=== PATIENT | male | born 1975 | race Caucasian/White ===

== ENCOUNTER → 2018-04-29 09:55 | Outpatient (CLI) | payer BC, SELFPAY ==
--- NOTE | 2018-04-29 10:00 | SATEXT_ITS ---
Assessment: Mr. Guerrero presents for nutritional counseling for hyperlipidemia. His reports there is a strong family history of heart disease. He is on medication for his cholesterol. His dietary recall shows that he has coffee with cream and sugar for breakfast, a sandwich, a piece of fruit, and snack cakes for lunch, a typical dinner, and then a snack like ice cream or snack cakes before bed. He drinks water all day long. Mr. Guerrero reports that he is very physically active. He is 70 and 236 lbs. His BMI is 35 kg/m2 c/w class 2 obesity. Nutritional Diagnosis: Undesirable food choices with regard to hyperlipidemia as evidenced by dietary recall. Intervention: Acknowledged the positive points of his eating plan and his lifestyle. He drinks water. He has been maintaining his weight so he does not overeat and he is physically active. We discussed the DASH eating plan as the gold standard for health and especially for heart health. We talked about Dahlgren 3's as a therapeutic food. Discussed eating in a way to promote a mild 5- 10% weight loss. Encouraged breakfast eating and gave examples. We talked about reducing the amount of added sugars he has in his diet with the snack cakes and to his coffee. We talked about action planning to make changes versus changing it all at once. Mr. Guerrero and his both demonstrated a good understanding of the information. Anticipate a high motivation to make changes and therefore good compliance. Provided written materials. Monitoring and Evaluation: Mr. Guerrero will self monitor his progress on his action plans and evaluate his nutrition care plan and adjust accordingly. Provided my contact information and encouraged Mr. Guerrero and/or his to contact me with any questions or concerns regarding his nutrition therapy. Thank you for the referral.
== END ==
PROVIDERS: PCP Nurse Practitioner; Visit Provider Dietitian, Registered
DX: E78.2 Mixed hyperlipidemia (principal); Z71.3 Dietary counseling and surveillance
CPT/HCPCS: 97802

== ENCOUNTER 2018-10-24 00:58 | Outpatient (CLI) | payer BC, SELFPAY ==
--- NOTE | 2018-10-24 08:38 | DI.RAD_ITS ---
SYMPTOM/DIAGNOSIS: RT ELBOW PAIN, M25.521 RIGHT ELBOW: Three views. No acute or healing fracture or dislocation is seen. The bones are normally mineralized. The articular surfaces are well maintained. Calcification is seen within the joint space laterally. The soft tissues are otherwise unremarkable. No significant joint effusion is seen. 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
== END 2018-10-24 01:18 ==
PROVIDERS: PCP Nurse Practitioner; Visit Provider Nurse Practitioner
DX: M25.521 Pain in right elbow (principal)
CPT/HCPCS: 73080

== ENCOUNTER 2018-12-21 08:29 | Outpatient (CLI) | payer BC, SELFPAY ==
[2018-12-21 09:34] LABS: HCT 48.2 % (40.0-50.0); HGB 15.7 g/dL (13.5-17.5); Mean Corp. HGB Concentration 32.6 g/dL (32.0-36.0); Mean Corpuscular Hemoglobin 31.8 pg (27.0-33.0); Mean Corpuscular Volume 97.6 fL (80-95); Platelet Count 222 x1000/uL (130-400); RBC 4.94 m/cumm (4.50-6.00); White Blood Cell Count 5.82 k/cumm (4.4-10.8)
[2018-12-21 10:21] LABS: Hemoglobin A1C 5.6 % (4.5-6.2)
[2018-12-21 11:46] LABS: ALT 41 U/L (12-78); AST 17 U/L (15-37); Alkaline Phosphatase 111 U/L (46-116); Anion Gap 7.9 mmol/L (3-11); BUN 10 mg/dL (7-18); Bilirubin, Total 0.3 mg/dL (0.2-1.0); CO2 29.1 mmol/L (21.0-32.0); CREATININE 0.78 mg/dL (0.70-1.30); Calcium 8.7 mg/dL (8.5-10.1); Chloride 106 mmol/L (98-107); Glucose 104 mg/dL (70-100); Potassium 4.6 mmol/L (3.5-5.1); Sodium 143 mmol/L (136-145); Total Protein 7.2 g/dL (6.4-8.2)
[2018-12-21 12:06] LABS: Cholesterol 195 mg/dL (50-200); HDL Cholesterol 30 mg/dL (40-60); LDL CHOLESTEROL 138 mg/dL (<100); Triglyceride 163 mg/dL (30-150)
== END 2018-12-21 08:49 ==
PROVIDERS: PCP Nurse Practitioner; Visit Provider Nurse Practitioner
DX: E11.9 Type 2 diabetes mellitus without complications (principal); I10 Essential (primary) hypertension; E78.5 Hyperlipidemia, unspecified; R73.01 Impaired fasting glucose
CPT/HCPCS: 36415; 80053; 80061; 83721; 85027; 83036

== ENCOUNTER 2019-04-04 10:24 | Emergency (ER) | payer BC, SELFPAY ==
[2019-04-04 10:31] VITALS: BP 150/87; PULSE 97; RESP 14; TEMP 36.7; O2SAT 97
[2019-04-04] MEDS: Balanced Salt Solution 15 ML BTL OP (10:40)
[2019-04-04] MEDS: Fluorescein STRIPS 100/BOX 1 MG OP (10:55)
[2019-04-04] MEDS: Tetracaine 0.5% 4 ML BTL OP (10:55)
--- NOTE | 2019-04-04 11:09 | W.ED.GENAD ---
Discharge Plan Disposition Patient Disposition: HOME Condition: Stable Discharge Details Chief Complaint: EyeProblem Clinical Impression: Corneal abrasion Primary Care Provider: Linda Romero ED Provider: Omar Bailey Home Meds and New Rx's Prescriptions: New erythromycin 5 mg/gram (0.5 %) ointment 1 applic OP TID 7 Days Qty: 1 RF: 0 No Action lisinopril 20 mg tablet 20 mg PO DAILY Qty: 90 RF: 3 nicotine 21 mg/24 hr patch 24 hour 1 patch TD DAILY Qty: 28 RF: 0 nicotine 14 mg/24 hr patch 24 hour 1 patch TD DAILY Qty: 28 RF: 0 nicotine 7 mg/24 hr patch 24 hour 1 patch TD Q24H Qty: 28 RF: 0 oxycodone 10 mg tablet 10 mg PO QID MDD 40 mg Qty: 112 RF: 0 ibuprofen 800 mg tablet 800 mg PO TID Qty: 90 RF: 3 nicotine (polacrilex) [Nicorette] 2 MG gum 2 mg PO Q2H PRN Qty: 100 RF: 3 rosuvastatin [Crestor] 20 mg tablet 20 mg PO DAILY Qty: 90 RF: 3 omeprazole 20 mg capsule,delayed release(DR/EC) 20 mg PO DAILY Qty: 90 RF: 3 Discharge Instructions Instructions: Corneal Abrasion (ED) Additional Instructions: Call [facility] on Saturday for an appointment [phone] if you develop deep eye pain or fevers or severe worsening pain return to the emergency department Medical Decision Making Pt states that he was grinding metal yesterday wearing protective eyewear and still had a piece hit his right eye. continues to have pain today so came here. Has no significant erythema of the conjunctiva, perrl, eomi and no periorbital swelling. He had immediate relief of discomfort with placement of tetracaine eye drops. no deep eye pain and negative larry's sign on exam. He did have a very small foreign body less than a 1mm at the 7 oclock position of the iris that I removed with a swab, and has a 2mm corneal abrasion. 20/20 vision. Will have him see [facility] for reassessment Differential Diagnosis foreign body, corneal abrasion HPI General Mode of arrival: ambulatory. Date/Time Provider Initiated Documentation: 04/04/19 10:28. Limitations to Documentation: no limitations. Information obtained by: patient. History of Present Illness 44 year old M presents to the emergency department with the chief complaint of right eye pain, described as moderate, Quality is described as aching, and is localized to the eyes. Patient reports no radiation. Patient started experiencing this day(s) (1) and it has been constant. No relieving factors improve symptom(s), No exacerbating factors reported . Patient did receive the following treatments prior to arrival, none Related Data Home Medications Medication Instructions Recorded Confirmed nicotine (polacrilex) [Nicorette] 2 mg PO Q2H PRN #100 piece of gum 03/06/18 04/04/19 nicotine 14 mg/24 hr daily 1 patch TD DAILY #28 each 06/10/18 04/04/19 transdermal patch nicotine 21 mg/24 hr daily 1 patch TD DAILY #28 each 06/10/18 04/04/19 transdermal patch nicotine 7 mg/24 hr daily 1 patch TD Q24H #28 each 06/10/18 04/04/19 transdermal patch omeprazole 20 mg capsule,delayed 20 mg PO DAILY #90 tab-cap 09/05/18 04/04/19 release rosuvastatin 20 mg tablet 20 mg PO DAILY #90 tab-cap 09/05/18 04/04/19 lisinopril 20 mg tablet 20 mg PO DAILY #90 tab 11/25/18 04/04/19 ibuprofen 800 mg tablet 800 mg PO TID #90 tab-cap 01/19/19 04/04/19 oxycodone 10 mg tablet 10 mg PO QID #112 tab MDD 40 mg 01/19/19 04/04/19 erythromycin 1 applic OP TID 7 Days #1 gm 04/04/19 Previous Rx's Medication Instructions Recorded nicotine (polacrilex) [Nicorette] 2 mg PO Q2H PRN #100 piece of gum 03/06/18 nicotine 14 mg/24 hr daily 1 patch TD DAILY #28 each 06/10/18 transdermal patch nicotine 21 mg/24 hr daily 1 patch TD DAILY #28 each 06/10/18 transdermal patch nicotine 7 mg/24 hr daily 1 patch TD Q24H #28 each 06/10/18 transdermal patch omeprazole 20 mg capsule,delayed 20 mg PO DAILY #90 tab-cap 09/05/18 release rosuvastatin 20 mg tablet 20 mg PO DAILY #90 tab-cap 09/05/18 lisinopril 20 mg tablet 20 mg PO DAILY #90 tab 11/25/18 ibuprofen 800 mg tablet 800 mg PO TID #90 tab-cap 01/19/19 oxycodone 10 mg tablet 10 mg PO QID #112 tab MDD 40 mg 01/19/19 erythromycin 1 applic OP TID 7 Days #1 gm 04/04/19 Allergies Allergy/AdvReac Type Severity Reaction Status Date / Time pravastatin AdvReac Intermediate NECK Verified 01/19/19 11:04 MUSCLE PAIN pregabalin [From Lyrica] AdvReac Intermediate Headache Verified 01/19/19 11:04 General Stated Complaint: EyeProblem GABRIELLE: 4 Review of Systems Review of Systems All systems reviewed & are unremarkable except as noted in HPI and below Constitutional Denies chills, Denies fever(s) and Denies weakness Cardiovascular Denies chest pain and Denies dyspnea Respiratory Denies cough and Denies dyspnea Gastrointestinal Denies abdominal pain, Denies nausea and Denies vomiting Neurologic Denies weakness Endocrine Denies heat intolerance PFS Surgical History (Updated 01/29/19 @ 10:41 by Stacy Shelley RN) Acromioplasty (Inactive 12/24/14) Family History Mother Hyperlipidemia Father Heart disease Hyperlipidemia Grandfather Alzheimer disease Grandfather Heart disease Hyperlipidemia Grandmother Personal history of malignant neoplasm Grandmother Hyperlipidemia Social History (Updated 01/19/19 @ 11:03 by Stacy Shelley RN) Smoking/Tobacco Use Status: Current every day Tobacco Type: cigarettes Alcohol Intake: never Drug use: Never Substance use type: does not use Caregiver/Support person: No Household members: spouse and children Number of Children: 2 Communication Needs: None 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 What type of physical activity do you participate in: none Seatbelt use: always Working smoke detector in home: Yes Carbon monox detector in home: Yes Do you feel safe at home: Yes Do you feel safe in your relationship?: Yes Exam Const General: no acute distress Orientation: alert HENMT Head: normal to inspection Ears: external ears normal General nose exam: external nose normal Mouth: moist mucous membranes Eyes General: appearance normal, both eyes and all related structures Neck Neck: normal visual inspection Resp Effort & Inspection: normal respiratory effort and able to speak in complete sentences Cardio Rate: regular rate Skin General skin exam: no rashes or lesions noted Neuro General: alert and oriented x3 Extrem General: normal to inspection Psych Mental Status: mental status grossly normal Course Vital Signs Temperature 36.7 C 04/04/19 10:31 Pulse 97 H 04/04/19 10:31 Respiratory Rate 14 04/04/19 10:31 Blood Pressure 150/87 H 04/04/19 10:31 Pulse Oximetry 97 04/04/19 10:31 Temperature 36.7 C 04/04/19 10:31 Temperature Source Temporal Artery Scan 04/04/19 10:31 Pulse 97 H 04/04/19 10:31 Respiratory Rate 14 04/04/19 10:31 Respiratory Effort 04/04/19 10:31 Blood Pressure 150/87 H 04/04/19 10:31 Pulse Oximetry 97 04/04/19 10:31 Oxygen Delivery Method Room Air 04/04/19 10:31 Oxygen Flow Rate 0 04/04/19 10:31
--- NOTE | 2019-04-04 14:03 | NUR.NOTE ---
Nursing Note: Referral faxed to [facility], along with the provider note. Debra Chow.
== END 2019-04-04 11:22 | disposition home or self-care (01) ==
PROVIDERS: Emergency Provider Emergency Medicine; PCP Nurse Practitioner
DX: S05.01XA Injury of conjunctiva and corneal abrasion without foreign body, right eye, initial encounter (principal); X58.XXXA Exposure to other specified factors, initial encounter
CPT/HCPCS: 99283

== ENCOUNTER 2019-04-15 16:29 | Outpatient (CLI) | payer BC, SELFPAY ==
[2019-04-17 10:49] LABS: Lyme Ab w Rflx to Lyme Confirm Negative
[2019-04-17 23:46] LABS: Anaplasma phagocytophilum Negative (Negative); B. miyamotoi PCR Negative (Negative); Babesia divergens/MO-1 Negative (Negative); Babesia duncani Negative (Negative); Babesia microti Negative (Negative); Ehrlichia chaffeensis Negative (Negative); Ehrlichia ewingii/canis Negative (Negative); Ehrlichia muris eauclairensis Negative (Negative)
== END 2019-04-15 16:49 ==
PROVIDERS: PCP Nurse Practitioner; Visit Provider Nurse Practitioner
DX: R53.83 Other fatigue (principal); M25.50 Pain in unspecified joint
CPT/HCPCS: 36415; 87798; 86618

== ENCOUNTER 2019-05-12 13:27 | Emergency (ER) | payer OTHER, SELFPAY ==
[2019-05-12 13:31] VITALS: BP 141/78; PULSE 105; RESP 16; TEMP 36.8; O2SAT 95
--- NOTE | 2019-05-12 13:34 | W.ED.GENAD ---
Discharge Plan Disposition Patient Disposition: HOME Condition: Good Discharge Details Chief Complaint: Laceration Clinical Impression: Foot laceration Primary Care Provider: Linda Romero ED Provider: Jose Hardy Home Meds and New Rx's Prescriptions: New cephalexin [Keflex] 500 mg capsule 500 mg PO QID 5 Days Qty: 20 RF: 0 No Action lisinopril 30 mg tablet 30 mg PO DAILY Qty: 90 RF: 3 oxycodone 10 mg tablet 10 mg PO QID MDD 40 mg Qty: 112 RF: 0 nicotine 21 mg/24 hr patch 24 hour 1 patch TD DAILY Qty: 28 RF: 0 nicotine 14 mg/24 hr patch 24 hour 1 patch TD DAILY Qty: 28 RF: 0 nicotine 7 mg/24 hr patch 24 hour 1 patch TD Q24H Qty: 28 RF: 0 ibuprofen 800 mg tablet 800 mg PO TID Qty: 90 RF: 3 nicotine (polacrilex) [Nicorette] 2 MG gum 2 mg PO Q2H PRN Qty: 100 RF: 3 rosuvastatin [Crestor] 20 mg tablet 20 mg PO DAILY Qty: 90 RF: 3 omeprazole 20 mg capsule,delayed release(DR/EC) 20 mg PO DAILY Qty: 90 RF: 3 Discharge Instructions Instructions: Laceration (ED) Additional Instructions: Please take the antibiotic as directed. Please leave the dressing on for 24 hours, then you may remove and begin cleaning the wound at least twice a day with soap and water. Continue to apply antibiotic ointment. Do not directly soak the area. Watch for any signs of infection and return if any increasing redness, swelling, pain, drainage. Please return the next 7 to 10 days for wound reassessment and suture removal. If you notice any worsening of your symptoms, or any new symptoms such as vomiting, diarrhea, fever, chills, shortness of breath, chest pain, numbness, weakness, or fainting , please return immediately to the emergency department for reevaluation. Please follow up with your primary care provider as soon as possible for reassessment and reevaluation. As always, it was a pleasure participating in your medical care today. Referrals: Linda Romero, HARJIT [Primary Care Provider] - Medical Decision Making This is a pleasant 44-year-old male who presents today for evaluation of a laceration to the dorsal aspect of his left foot. Less than an hour prior to arrival a piece of kash metal came down off of a bumper and struck the top of his boot, piercing through the leather boot and through into his second left toe on the dorsal aspect. Exam demonstrates a linear laceration, no foreign bodies. We will get an x-ray to rule out acute foreign body, we will suture the patient's foot, and because of the nature of the material, as well as the material going through the boot, sock, and through the skin, do feel that antibiotics would be beneficial in this scenario. Tetanus is up-to-date. 2:14 PM X-ray shows no evidence of significant foreign body. No evidence of significant fracture. 2 simple interrupted Ethilon sutures were placed, patient tolerated this well. Because it did go through his boot, gram-positive coverage is recommended, he was on the dorsal aspect and not the plantar aspect, and so the incidence of Pseudomonas is significantly less likely. Patient will be started on Keflex, we discussed red flags which to return as well as the importance of return for removal of the suture material. If you notice any worsening of your symptoms, or any new symptoms such as vomiting, diarrhea, fever, chills, shortness of breath, chest pain, numbness, weakness, or fainting , please return immediately to the emergency department for reevaluation. Please follow up with your primary care provider as soon as possible for reassessment and reevaluation. As always, it was a pleasure participating in your medical care today. Procedure: Suture Patient was positioned appropriately, <3cc lidocaine without epinephrine> was used as a local anesthetic. Copious amounts of normal saline with chlorhexidine were used for irrigation. Patient was sterile draped with wound exposed. 2 simple interrupted sutures using 4-0 Ethilon were placed with good approximation. Wound dressed. Estimated Blood Loss: 1 The patient tolerated the procedure well and there were no complications. HPI General Date/Time Provider Initiated Documentation: 05/12/19 13:28. HPI Narrative: This is a 44-year-old male with a past medical history of tobacco abuse, previous osteomyelitis of his hip, who presents today for evaluation of injury to the dorsal aspect of his left foot. Patient states that roughly 30 minutes to an hour prior to arrival a piece of kash metal came down and struck the top of his foot, went through his shoe, and cut his toe. He came to the ER immediately for evaluation. Last tetanus was 1 year ago. He denies any numbness tingling or weakness. Aside from mild pain he denies any other complaints at this time. Related Data Home Medications Medication Instructions Recorded Confirmed nicotine (polacrilex) [Nicorette] 2 mg PO Q2H PRN #100 piece of gum 03/06/18 05/12/19 nicotine 14 mg/24 hr daily 1 patch TD DAILY #28 each 06/10/18 05/12/19 transdermal patch nicotine 21 mg/24 hr daily 1 patch TD DAILY #28 each 06/10/18 05/12/19 transdermal patch nicotine 7 mg/24 hr daily 1 patch TD Q24H #28 each 06/10/18 05/12/19 transdermal patch omeprazole 20 mg capsule,delayed 20 mg PO DAILY #90 tab-cap 09/05/18 05/12/19 release rosuvastatin 20 mg tablet 20 mg PO DAILY #90 tab-cap 09/05/18 05/12/19 ibuprofen 800 mg tablet 800 mg PO TID #90 tab-cap 01/19/19 05/12/19 lisinopril 30 mg tablet 30 mg PO DAILY #90 tab 04/09/19 05/12/19 oxycodone 10 mg tablet 10 mg PO QID #112 tab MDD 40 mg 04/09/19 05/12/19 cephalexin [Keflex] 500 mg PO QID 5 Days #20 cap 05/12/19 Previous Rx's Medication Instructions Recorded nicotine (polacrilex) [Nicorette] 2 mg PO Q2H PRN #100 piece of gum 03/06/18 nicotine 14 mg/24 hr daily 1 patch TD DAILY #28 each 06/10/18 transdermal patch nicotine 21 mg/24 hr daily 1 patch TD DAILY #28 each 06/10/18 transdermal patch nicotine 7 mg/24 hr daily 1 patch TD Q24H #28 each 06/10/18 transdermal patch omeprazole 20 mg capsule,delayed 20 mg PO DAILY #90 tab-cap 09/05/18 release rosuvastatin 20 mg tablet 20 mg PO DAILY #90 tab-cap 09/05/18 ibuprofen 800 mg tablet 800 mg PO TID #90 tab-cap 01/19/19 lisinopril 30 mg tablet 30 mg PO DAILY #90 tab 04/09/19 oxycodone 10 mg tablet 10 mg PO QID #112 tab MDD 40 mg 04/09/19 cephalexin [Keflex] 500 mg PO QID 5 Days #20 cap 05/12/19 Allergies Allergy/AdvReac Type Severity Reaction Status Date / Time pravastatin AdvReac Intermediate NECK Verified 05/12/19 13:34 MUSCLE PAIN pregabalin [From Lyrica] AdvReac Intermediate Headache Verified 05/12/19 13:34 General GABRIELLE: 4 Review of Systems Review of Systems All systems reviewed & are unremarkable except as noted in HPI and below PFSH Surgical History (Updated 01/29/19 @ 10:41 by Stacy Shelley RN) Acromioplasty (Inactive 12/24/14) NEER ACROMIOPLASTY/EXCISION DISTAL CLAVICLE RGHT SHOULDER/DR PRESTON Family History Mother Hyperlipidemia Father Heart disease Hyperlipidemia Grandfather Alzheimer disease Grandfather Heart disease Hyperlipidemia Grandmother Personal history of malignant neoplasm BREAST Grandmother Hyperlipidemia Social History (Updated 01/19/19 @ 11:03 by Stacy Shelley RN) Smoking/Tobacco Use Status: Current every day Tobacco Type: cigarettes Alcohol Intake: never Drug use: Never Substance use type: does not use Caregiver/Support person: No Household members: spouse and children Number of Children: 2 Communication Needs: None 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 3.ENT: Atraumatic external nose and ears. Moist MM. Neck: Symmetric, trachea midline, No thyromegaly. 4.CVS: +S1/S2, No murmurs or gallops. Peripheral pulses 2+ and equal in all extremities. Brisk capillary refill in all extremities. 5.RESP: Unlabored respiratory effort. Clear to auscultation bilaterally. No wheezes rales or rhonchi 6.GI: Soft, Nontender/Nondistended, No hepatosplenomegaly. No guarding or rebound. 7.MSK: Normocephalic, Extremities w/o deformity. No cyanosis or clubbing, Normal movement of all extremities. Examination of the left foot demonstrates a small 1 cm linear laceration at the base of the second toe. No evidence of deep tendon involvement or bony disruption. Patient demonstrates normal flexion and extension strength for this toe. No other signs of trauma. No evidence of retained foreign body. Brisk capillary refill distal to this area, sensation notably intact distal. 8.Skin: Warm, Dry. No rashes or lesions. 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 Sensation grossly intact, no focal neurologic deficits. 10.Psych: (AAO) x3. Appropriate mood and affect Procedures Laceration Laceration 1: Site: lower extremity Side (If applicable): right Size (cm): 1 Description: linear Depth: simple, single layer Local Anesthetic: Lidocaine 1% Amount of anesthesia used (mL): 3 Pre-repair: wound explored, irrigated extensively and deep structures intact Skin layer closed with: nylon Size (cm): 4-0 Number of sutures: 2 Technique: simple, interrupted
--- NOTE | 2019-05-12 14:02 | DI.RAD_ITS ---
SYMPTOMS/DIAGNOSIS: CUT TOP OF FOOT AT METATARSAL PHALANGEAL JOINT, ? FOREIGN BODY LEFT FOOT: No fracture or foreign body is seen. The joint spaces are well maintained. IMPRESSION: Negative left foot.
[2019-05-12 14:24] VITALS: BP 141/78; PULSE 88; RESP 16; TEMP 36.8; O2SAT 95
== END 2019-05-12 14:25 | disposition home or self-care (01) ==
LOC: ER 13:55
PROVIDERS: Emergency Provider Student in an Organized Health Care Education/Training Program; PCP Nurse Practitioner
DX: S91.312A Laceration without foreign body, left foot, initial encounter (principal); W45.8XXA Other foreign body or object entering through skin, initial encounter
CPT/HCPCS: 12001; 99283; 73630; 99282

== ENCOUNTER 2020-02-17 01:18 | Outpatient (CLI) | payer BC, SELFPAY ==
[2020-02-17 07:51] LABS: Hemoglobin A1C 5.5 % (3.8-5.6)
[2020-02-17 08:20] LABS: ALT 37 U/L (16-63); AST 19 U/L (15-37); Albumin 4.1 g/dL (3.4-5.0); Alkaline Phosphatase 126 U/L (46-116); Anion Gap 8.3 mmol/L (3-11); BUN 11 mg/dL (7-18); Bilirubin, Total 0.4 mg/dL (0.2-1.0); CO2 28.7 mmol/L (21.0-32.0); CREATININE 0.88 mg/dL (0.70-1.30); Calcium 8.8 mg/dL (8.5-10.1); Calculated LDL 90 mg/dL (<100); Chloride 104 mmol/L (98-107); Cholesterol 181 mg/dL (<200); Glucose 103 mg/dL (74-106); HDL Cholesterol 25 mg/dL (40-60); Potassium 4.6 mmol/L (3.5-5.1); Sodium 141 mmol/L (136-145); Total Protein 7.5 g/dL (6.4-8.2); Triglyceride 330 mg/dL (<150)
== END 2020-02-17 01:38 ==
PROVIDERS: PCP Nurse Practitioner; Visit Provider Nurse Practitioner
DX: I10 Essential (primary) hypertension (principal); E78.5 Hyperlipidemia, unspecified; R73.01 Impaired fasting glucose
CPT/HCPCS: 36415; 80053; 80061; 83036

== ENCOUNTER 2020-04-05 08:34 | Outpatient (CLI) | payer BC, SELFPAY ==
[2020-04-07 07:12] LABS: SARS-CoV-2 RNA Undetected (Undetected); SARS-CoV-2 Specimen Source Nasopharynx
== END 2020-04-05 08:54 ==
PROVIDERS: PCP Nurse Practitioner; Visit Provider Nurse Practitioner
DX: Z11.59 Encounter for screening for other viral diseases (principal)
CPT/HCPCS: U0003

== ENCOUNTER 2020-05-19 07:51 | Emergency (ER) | payer BC, SELFPAY ==
[2020-05-19 07:56] VITALS: BP 164/99; PULSE 95; RESP 16; TEMP 37; O2SAT 99
--- NOTE | 2020-05-19 08:03 | W.ED.GENAD ---
Discharge Plan Disposition Patient Disposition: HOME Condition: Stable Discharge Details Clinical Impression: Acute foreign body of right eye Primary Care Provider: Linda Romero ED Provider: Omar Bailey Home Meds and New Rx's Prescriptions: New erythromycin 5 mg/gram (0.5 %) ointment 0.5 inch ophthalmic (eye) TID Qty: 1 RF: 0 Continued rosuvastatin [Crestor] 20 mg tablet 20 mg PO DAILY Qty: 90 RF: 3 ibuprofen 800 mg tablet 800 mg PO TID Qty: 90 RF: 3 nicotine (polacrilex) [Nicorette] 2 mg gum 2 mg PO Q2H PRN Qty: 100 RF: 3 duloxetine 60 mg capsule,delayed release(DR/EC) 60 mg PO DAILY Qty: 90 RF: 1 ropinirole 1 mg tablet 1 mg PO DAILY Qty: 90 RF: 3 lisinopril 30 mg tablet 30 mg PO DAILY Qty: 90 RF: 3 oxycodone 10 mg tablet 10 mg PO TID MDD 30mg Qty: 84 RF: 0 omeprazole 20 mg capsule,delayed release(DR/EC) 20 mg PO DAILY Qty: 90 RF: 3 Discharge Instructions Instructions: Eye Foreign Body (ED) Additional Instructions: if worsening pain, fevers or loss of vision return to the emergency department Medical Decision Making 45 yo male was grinding an engine when he felt a small piece of metal get in his right eye, denies falling or other injuries. Has no pain in the left eye. No periorbital swelling, perrl, eomi and 20/20 vision in both eyes, does have a small 1mm metal appearing foreign body at the 3 oclock position over the iris on the right. Will apply tetracaine and attempt removal. removed with q tip on first attempt and tolerated well, will d/c on erythromycin. Small less than 1mm superficial corneal abrasion and no evidence of globe rupture Differential Diagnosis Differential Diagnosis: foreign body, corneal abrasion HPI General Mode of arrival: ambulatory. Date/Time Provider Initiated Documentation: 05/19/20 08:01. Limitations to Documentation: no limitations. Information obtained by: patient. History of Present Illness 45 year old M presents to the emergency department with the chief complaint of right eye pain, described as moderate, Patient started experiencing this minute(s) (30) and it has been constant. No relieving factors improve symptom(s), No exacerbating factors reported . Patient did receive the following treatments prior to arrival, none Related Data Home Medications Medication Instructions Recorded Confirmed rosuvastatin 20 mg tablet 20 mg PO DAILY #90 tab-cap 09/01/19 04/07/20 omeprazole 20 mg capsule,delayed 20 mg PO DAILY #90 tab-cap 10/19/19 05/19/20 release ropinirole 1 mg tablet 1 mg PO DAILY #90 tab 10/27/19 05/19/20 ibuprofen 800 mg tablet 800 mg PO TID #90 tab-cap 01/19/20 05/19/20 nicotine (polacrilex) 2 mg gum 2 mg PO Q2H PRN #100 piece of gum 01/19/20 05/19/20 duloxetine 60 mg capsule,delayed 60 mg PO DAILY #90 cap 03/10/20 05/19/20 release lisinopril 30 mg tablet 30 mg PO DAILY #90 tab 04/07/20 05/19/20 oxycodone 10 mg tablet 10 mg PO TID #84 tab MDD 30mg 04/07/20 05/19/20 erythromycin 0.5 inch OPHTHALMIC (EYE) TID #1 g 05/19/20 Previous Rx's Medication Instructions Recorded rosuvastatin 20 mg tablet 20 mg PO DAILY #90 tab-cap 09/01/19 omeprazole 20 mg capsule,delayed 20 mg PO DAILY #90 tab-cap 10/19/19 release ropinirole 1 mg tablet 1 mg PO DAILY #90 tab 10/27/19 ibuprofen 800 mg tablet 800 mg PO TID #90 tab-cap 01/19/20 nicotine (polacrilex) 2 mg gum 2 mg PO Q2H PRN #100 piece of gum 01/19/20 duloxetine 60 mg capsule,delayed 60 mg PO DAILY #90 cap 03/10/20 release lisinopril 30 mg tablet 30 mg PO DAILY #90 tab 04/07/20 oxycodone 10 mg tablet 10 mg PO TID #84 tab MDD 30mg 04/07/20 erythromycin 0.5 inch OPHTHALMIC (EYE) TID #1 g 05/19/20 Allergies Allergy/AdvReac Type Severity Reaction Status Date / Time pravastatin AdvReac Intermediate NECK Verified 05/19/20 08:00 MUSCLE PAIN pregabalin [From Lyrica] AdvReac Intermediate Headache Verified 05/19/20 08:00 General Stated Complaint: EyeProblem GABRIELLE: 3 Review of Systems All systems reviewed & are unremarkable except as noted in HPI and below Constitutional Constitutional: Denies chills, Denies fever(s) and Denies weakness Eyes Eyes: Denies loss of vision Cardiovascular Cardiovascular: Denies chest pain and Denies dyspnea Respiratory Respiratory: Denies cough and Denies dyspnea Gastrointestinal Gastrointestinal: Denies abdominal pain, Denies nausea and Denies vomiting Musculoskeletal Musculoskeletal: Denies joint swelling Neurologic Neurologic: Denies loss of vision and Denies weakness [facility] Medical History (Updated 05/19/20 @ 08:25 by Omar Bailey MD) Depressive disorder IFG (impaired fasting glucose) RLS (restless legs syndrome) Surgical History (Updated 01/29/19 @ 10:41 by Stacy Shelley RN) Acromioplasty (12/24/14) NEER ACROMIOPLASTY/EXCISION DISTAL CLAVICLE RGHT SHOULDER/DR PRESTON Family History Mother Hyperlipidemia Father Heart disease Hyperlipidemia Grandfather Alzheimer disease Grandfather Heart disease Hyperlipidemia Grandmother Personal history of malignant neoplasm BREAST Grandmother Hyperlipidemia Social History Smoking/Tobacco Use Status: Current every day Tobacco Type: cigarettes Alcohol Intake: never Drug use: Never Substance use type: does not use Caregiver/Support person: No Household members: spouse and children Number of Children: 2 Communication Needs: None 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 What type of physical activity do you participate in: none Seatbelt use: always Working smoke detector in home: Yes Carbon monox detector in home: Yes Do you feel safe at home: Yes Do you feel safe in your relationship?: Yes Exam Const General: no acute distress Orientation: alert HENMT Head: normal to inspection Ears: external ears normal General nose exam: external nose normal Mouth: moist mucous membranes Eyes EOM: EOM intact bilaterally Neck Neck: normal visual inspection Resp Effort & Inspection: normal respiratory effort and able to speak in complete sentences Cardio Rate: regular rate Skin General skin exam: no rashes or lesions noted Neuro General: patient alert and patient oriented x3 Extrem General: normal to inspection Psych Mental Status: mental status grossly normal Course Vital Signs Vital signs: Vital Signs Temperature 37.0 C 05/19/20 07:56 Pulse 95 H 05/19/20 07:56 Respiratory Rate 16 05/19/20 07:56 Blood Pressure 164/99 H 05/19/20 07:56 Pulse Oximetry 99 05/19/20 07:56 Temperature 37.0 C 05/19/20 07:56 Temperature Source Skin 05/19/20 07:56 Pulse 95 H 05/19/20 07:56 Respiratory Rate 16 05/19/20 07:56 Respiratory Effort Non-Labored 05/19/20 07:56 Blood Pressure 164/99 H 05/19/20 07:56 Blood Pressure Position Sitting 05/19/20 07:56 Pulse Oximetry 99 05/19/20 07:56 Oxygen Delivery Method Room Air 05/19/20 07:56 Oxygen Flow Rate 0 05/19/20 07:56 Pain Level 0 05/19/20 07:56
[2020-05-19] MEDS: Tetracaine 0.5% 4 ML BTL (08:37)
== END 2020-05-19 08:33 | disposition home or self-care (01) ==
PROVIDERS: Emergency Provider Emergency Medicine; PCP Nurse Practitioner
DX: S05.01XA Injury of conjunctiva and corneal abrasion without foreign body, right eye, initial encounter (principal); W26.8XXA Contact with other sharp object(s), not elsewhere classified, initial encounter
CPT/HCPCS: 99284

== ENCOUNTER 2020-08-03 11:04 | Outpatient (CLI) | payer BC, SELFPAY ==
--- NOTE | 2020-08-03 10:01 | DI.RAD_ITS ---
EXAM: XR FINGER LT INDEX CLINICAL HISTORY: injured left pointer 2 mos ago. Persistent pain m79.645 pain lt finger TECHNIQUE: COMPARISON: No exams were available for comparison FINDINGS: Three views were obtained. No bony or soft tissue abnormality seen. No evidence of fracture. IMPRESSION: RADIATION DOSE DELIVERED: Total DLP
== END 2020-08-03 11:24 ==
PROVIDERS: PCP Nurse Practitioner; Visit Provider Nurse Practitioner
DX: M79.645 Pain in left finger(s) (principal)
CPT/HCPCS: 73140

== ENCOUNTER 2020-12-26 03:36 | Outpatient (CLI) | payer BC, SELFPAY ==
[2020-12-26 07:37] LABS: Hemoglobin A1C 5.5 % (<5.7)
[2020-12-26 08:40] LABS: ALT 32 U/L (16-63); AST 18 U/L (15-37); Albumin 4.1 g/dL (3.4-5.0); Alkaline Phosphatase 111 U/L (46-116); Anion Gap 7.1 mmol/L (3-11); BUN 12 mg/dL (7-18); Bilirubin, Total 0.3 mg/dL (0.2-1.0); CO2 27.9 mmol/L (21.0-32.0); CREATININE 0.9 mg/dL (0.70-1.30); Calcium 8.8 mg/dL (8.5-10.1); Calculated LDL 80 mg/dL (<100); Chloride 106 mmol/L (98-107); Cholesterol 142 mg/dL (<200); Glucose 108 mg/dL (74-106); HDL Cholesterol 22 mg/dL (40-60); Potassium 4.6 mmol/L (3.5-5.1); Sodium 141 mmol/L (136-145); Total Protein 7.3 g/dL (6.4-8.2); Triglyceride 202 mg/dL (<150)
== END 2020-12-26 03:37 | disposition home or self-care (01) ==
LOC: LBO 03:36
PROVIDERS: PCP Nurse Practitioner; Visit Provider Nurse Practitioner
DX: I10 Essential (primary) hypertension (principal); E78.5 Hyperlipidemia, unspecified; R73.01 Impaired fasting glucose
CPT/HCPCS: 36415; 80053; 80061; 83036

== ENCOUNTER 2021-02-14 15:54 | Outpatient (REF) | payer BC, SELFPAY ==
[2021-02-17 08:09] LABS: Codeine Negative ng/mL (Cutoff: 25); Dihydrocodeine Negative ng/mL (Cutoff: 25); Hydrocodone Negative ng/mL (Cutoff: 25); Hydromorphone Negative ng/mL (Cutoff: 25); Morphine Negative ng/mL (Cutoff: 25); Naloxone Negative ng/mL (Cutoff: 25); Norhydrocodone Negative ng/mL (Cutoff: 25); Noroxycodone 278 ng/mL (Cutoff: 25); Noroxymorphone Negative ng/mL (Cutoff: 25); Opiates Interpretation Positive.
== END 2021-02-14 15:55 | disposition home or self-care (01) ==
LOC: LBN 15:54
PROVIDERS: PCP Nurse Practitioner; Visit Provider Nurse Practitioner
DX: M54.5 Low back pain (principal); G89.4 Chronic pain syndrome; Z79.891 Long term (current) use of opiate analgesic
CPT/HCPCS: 80361; 80362

== ENCOUNTER 2021-10-12 01:06 | Outpatient (CLI) | payer BC, SELFPAY ==
--- NOTE | 2021-10-12 09:00 | ETT_ITS ---
APPROVED REPORT Exam: Exercise Treadmill Patient Location: Out-Patient Room/Bed: Stress Nurse: Alondra Ash RN Ordering Provider:LORENA VILLATORO, Contact Number: [phone] BMI: 32.48 Baseline Rhythm: Sinus Rhythm Comment: U waves present Indications: family h/o heart disease, BERNSTEIN, heartburn Medical History Medical History: Smoker, HLD< HTN, asthma, back surgery Cardiac Medications: Rosuvastatin, Omeprazole, Lisinopril Allergies: Pravastatin, Pregablin Cardiac Risk Factors: Family Hx, HTN, HLD, Asthma, Smoker Previous Cardiac Procedures: None Pretest Chest Pain Characteristics: None Exercise History: Sedentary Physical Disabilities: None Lung Sounds: Clear to auscultation Heart Sounds: Regular Stress Test Details Test: Exercise stress testing was performed using a Alberto protocol. Rest Stress HR Resting HR Supine: 88 bpm Max Heart Rate (APMHR): 176 bpm Resting HR Standin bpm Target HR (85% APMHR): 149 bpm Max HR Achieved: 156 bpm % of APMHR: 88 Recovery HR: 104 bpm HR response to stress: Normal HR response to stress BP Resting BP Supine: 148/90 mmHg Resting BP Standin/90 mmHg Max BP: 210/84 mmHg Recovery BP: 148/82 mmHg BP response to stress: Normal blood pressure response to stress. ECG Resting ECG: Sinus Rhythm Ectopy: None Comment: U waves present Stress ECG: Sinus Tachycardia ST Change: No significant ST segment changes noted Arrhythmia: None Recovery ECG: Sinus Rhythm Recovery ST Change: No significant ST segment changes noted Recovery Arrhythmia: None Clinical Reason for Termination: Fatigue Stress Symptoms: Dyspnea Exercise duration: 8 min47 sec Highest Stage Reached: Stage 3: 3.4 mph at 14% grade. Exercise capacity: 10.16 METs Functional Capacity: Average Capacity Griffith Treadmill Score: 7 Rate Pressure Product: [id number] Stress ECG Conclusion 1. The resting electrocardiogram was within normal limits 2. The patient exercised on the Alberto protocol and completed a workload of 10.16 METS, stopping due t o shortness of breath 3. Normal heart rate and blood pressure response to exercise. The patient achieved 88% of maximal pr edicted heart rate for age 4. There was no electrocardiographic evidence of myocardial ischemia 5. There were no significant dysrhythmias Griffith Treadmill Score is 7 which is Low risk. Stress Test Summary STAGE Time (mins) Speed (mph) Grade (%) HR BP SYMPTOMS METS Supine 88 148/90 Standing 96 150/90 1 3 1.7 10 122 162/88 mild SOB 4.6 2 6 2.5 12 143 172/92 mod SOB 7 3 9 3.4 14 155 198/90 mod SOB 10.2 1 min recovery 129 210/84 mild SOB 3 min recovery 110 182/80 SOB resolved 6 min recovery 104 148/82
== END 2021-10-12 01:26 ==
PROVIDERS: PCP Nurse Practitioner; Visit Provider Nurse Practitioner
DX: Z82.49 Family history of ischemic heart disease and other diseases of the circulatory system (principal); R06.09 Other forms of dyspnea; R12 Heartburn; I10 Essential (primary) hypertension; E78.5 Hyperlipidemia, unspecified; J45.909 Unspecified asthma, uncomplicated; F17.210 Nicotine dependence, cigarettes, uncomplicated
CPT/HCPCS: 93017

== ENCOUNTER 2022-04-19 13:34 | Outpatient (REF) | payer BC, SELFPAY ==
[2022-04-19 07:29] LABS: HCT 52.2 % (40.0-50.0); HGB 16.9 g/dL (13.5-17.5); MCH 31.6 pg (27.0-33.0); MCHC 32.4 % (32.0-36.0); MCV 98 fL (80-95); MPV 9.4 fL (8.0-11.0); Platelet Count 273 10^3/uL (130-400); RBC 5.35 10^6/uL (4.36-5.78); RDW 12.6 % (11.8-14.1); RDW-SD 45.1 fL
[2022-04-19 07:55] LABS: ALT 24 U/L (16-63); AST 12 U/L (15-37); Albumin 3.8 g/dL (3.4-5.0); Alkaline Phosphatase 152 U/L (46-116); Anion Gap 7.8 mmol/L (3-11); BUN 12 mg/dL (7-18); Bilirubin, Total 0.3 mg/dL (0.2-1.0); CO2 29.2 mmol/L (21.0-32.0); CREATININE 0.8 mg/dL (0.70-1.30); Calcium 8.5 mg/dL (8.5-10.1); Calculated LDL 197 mg/dL (<100); Chloride 104 mmol/L (98-107); Cholesterol 279 mg/dL (<200); Glucose 109 mg/dL (74-106); HDL Cholesterol 30 mg/dL (40-60); Potassium 4.2 mmol/L (3.5-5.1); Sodium 141 mmol/L (136-145); TSH (W/Ref FT4) 0.82 uIU/mL (0.36-3.74); Total Protein 7.6 g/dL (6.4-8.2); Triglyceride 260 mg/dL (<150)
[2022-04-20 09:29] LABS: HIV-1/2 Ag & Ab Screen Negative (Negative)
[2022-04-20 09:55] LABS: Hepatitis C Ab w Rflx HCV PCR Negative (Negative)
[2022-04-26 17:58] LABS: Testosterone, Free 18.7 ng/dL (4.26-16.4); Testosterone, Total 611 ng/dL (240-950)
== END 2022-04-19 13:35 | disposition home or self-care (01) ==
LOC: LBN 13:34
PROVIDERS: PCP Nurse Practitioner; Visit Provider Nurse Practitioner
DX: I10 Essential (primary) hypertension (principal); E78.5 Hyperlipidemia, unspecified; R53.83 Other fatigue; R68.82 Decreased libido; G89.29 Other chronic pain; Z11.59 Encounter for screening for other viral diseases; Z11.4 Encounter for screening for human immunodeficiency virus [HIV]
CPT/HCPCS: 80053; 80061; 84402; 84403; 85027; 86803; 87389; 84443

== ENCOUNTER 2022-06-21 13:39 | Outpatient (CLI) | payer BC, SELFPAY ==
--- NOTE | 2022-06-21 09:30 | DI.RAD_ITS ---
Exam(s) XR KNEE LT 4V AP,LAT,SYDNEE,PAT EXAM: XR KNEE LT 4V AP,LAT,SYDNEE,PAT CLINICAL HISTORY: Left knee pain. TECHNIQUE: 2D digital imaging was performed of the left knee. Four images were obtained. Merchant, AP, lateral and PA tunnel views were obtained. COMPARISON: CR LEFT KNEE 4+ VIEWS from 05/21/2017 FINDINGS: BONES: No acute fracture is present. No bony destructive lesion is seen. The distal aspect of intram edullary rajiv is again seen in the distal femur and is unchanged. Posttraumatic changes are seen in t he distal femur. JOINTS: The knee is normally aligned. No joint effusion is seen. SOFT TISSUE: Surgical clips are seen in the soft tissues. IMPRESSION: No acute abnormality. DATA REPOSITORY: RADIATION DOSE DELIVERED:
== END 2022-06-21 13:40 | disposition home or self-care (01) ==
LOC: DIORS 13:39
PROVIDERS: PCP Nurse Practitioner; Referring Provider Nurse Practitioner; Visit Provider Physician Assistant
DX: M25.562 Pain in left knee (principal)
CPT/HCPCS: 73564

== ENCOUNTER 2022-10-28 17:15 | Emergency (ER) | payer BC, SELFPAY ==
[2022-10-28 17:20] VITALS: BP 135/84; PULSE 84; RESP 16; TEMP 35.7; O2SAT 98
[2022-10-28 17:51] LABS: Abs Immature Grans 0.03 10^3/uL (0.0-0.06); Absolute Basophil Count 0.05 10^3/uL (0.0-0.2); Absolute Lymphocyte Count 2.43 10^3/uL (1.2-3.4); Absolute Monocyte Count 0.69 10^3/uL (0.1-0.8); Basophils % 0.5; Eosinophils % 6.7; HCT 49.3 % (40.0-50.0); HGB 16.3 g/dL (13.5-17.5); Immature Grans % 0.3; Lymphocytes % 23.1; MCH 32.1 pg (27.0-33.0); MCHC 33.1 % (32.0-36.0); MCV 97 fL (80-95); MPV 9.1 fL (8.0-11.0); Monocytes % 6.6; Neutrophils % 62.8; Platelet Count 212 10^3/uL (130-400); RBC 5.07 10^6/uL (4.36-5.78); RDW 11.9 % (11.8-14.1); RDW-SD 43.1 fL
[2022-10-28 17:54] LABS: Bilirubin Negative (Negative); Blood Negative (Negative); Clarity Clear (Clear); Glucose Negative (Negative); Ketones Negative (Negative); Leukocyte Esterase Negative (Negative); Nitrite Negative (Negative); Specific Gravity 1.025 (1.005-1.025); Urobilinogen 0.2 mg/dL (Up to 0.2)
[2022-10-28 18:10] LABS: ALT 46 U/L (16-63); AST 26 U/L (15-37); Albumin 4.3 g/dL (3.4-5.0); Alkaline Phosphatase 132 U/L (46-116); Anion Gap 7.7 mmol/L (3-11); BUN 9 mg/dL (7-18); Bilirubin, Total 0.5 mg/dL (0.2-1.0); CO2 29.3 mmol/L (21.0-32.0); CREATININE 0.8 mg/dL (0.70-1.30); Calcium 9.3 mg/dL (8.5-10.1); Chloride 99 mmol/L (98-107); Estimated GFR 111.22 (mL/min/1.73m2); Glucose 99 mg/dL (74-106); Lipase 46 U/L (16-77); Potassium 4.1 mmol/L (3.5-5.1); Sodium 136 mmol/L (136-145); Total Protein 8.1 g/dL (6.4-8.2)
--- NOTE | 2022-10-28 18:30 | DI.CT_ITS ---
Exam(s) CT ABDOMEN PELVIS W EXAM: CT ABDOMEN PELVIS W CLINICAL HISTORY: RLQ/suprapubic pain. TECHNIQUE: Imaging Protocol: Axial computed tomography images with coronal and sagittal reformatted images were created and reviewed CONTRAST MATERIAL: Intravenous: Omnipaque 350 Contrast volume:100 ml Oral: no COMPARISON: CT ABD PELVIS WITH CONTRAST from 10/30/2011 FINDINGS: ABDOMEN: Lung Bases: Normal where visualized. Liver: Normal density. No measurable mass. Gallbladder and biliary tract: No radiodense calculus or dilation. Pancreas: Normal density, no abnormal calcifications or inflammatory process. Spleen: Normal. Kidneys: Normal size, contour and axis. Tiny nonobstructing stone mid right kidney. No obstructive uropathy. Small bilateral renal cysts. No follow-up recommended. No suspicious masses seen. Stomac h and small bowel: Small diverticulum descending duodenum. Adrenal glands: 10 millimeter left a adrenal nodule, low-density, likely adenoma. Present on prior e xam. No follow-up recommended. Abdominal Aorta: Abdominal portion non-dilated. PELVIS: Bladder: No gross wall thickening. No calculi.No focal mass. Bowel: Mild diverticulosis. No obstruction or bowel wall thickening. Appendix normal. Peritoneal cavity: No ascites, collection or mesenteric inflammatory response. Bones: Degenerative disc changes L5-S1. Juan in left femur. Reproductive organs: Within normal limits. Lymph nodes: Unremarkable. Soft tissue: Fatty containing right inguinal hernia. Impression: No acute abnormality. Incidental findings as mentioned above. RADIATION DOSE DELIVERED: 1,174.37mGy.cm Total DLP DATA REPOSITORY: All CT scans at this facility are submitted to the National Radiology Data Registry (NRDR) Dose Index Registry (DIR) with the [employer] (ACR). RADIATION OPTIMIZATION: All CT scans at this facility use at least one of these dose optimization te chniques: automated exposure control; mA and/or kV adjustment per patient size (includes targeted exa ms where dose is matched to clinical indication); or iterative reconstruction.
[2022-10-28] MEDS: Normal Saline - Diluent 50 ML VIAL IJ (18:58)
[2022-10-28] MEDS: Omnipaque 350 MG/ML 100 ML BTL IJ (18:58)
--- NOTE | 2022-10-28 19:16 | DI.VRAD_ITS ---
PROCEDURE INFORMATION: Exam: CT Abdomen And Pelvis With Contrast Exam date and time: 10/28/2022 6:58 PM Age: 47 years old Clinical indication: Other: Rlq/suprapubic pain TECHNIQUE: Imaging protocol: Computed tomography of the abdomen and pelvis with contrast. Contrast material: OMNIPAQUE 350; Contrast volume: 100 ml; Contrast route: INTRAVENOUS (IV); COMPARISON: MRI L LOWER JOINT WO CONT 06/12/2017 4:51 PM FINDINGS: Liver: Hepatomegaly and diffuse fatty infiltrationNo mass. Gallbladder and bile ducts: Normal. No calcified stones. No ductal dilation. Pancreas: Normal. No ductal dilation. Spleen: Normal. No splenomegaly. Adrenal glands: 11 mm left adrenal nodule Kidneys and ureters: Bilateral renal cysts No hydronephrosis. Stomach and bowel: Minimal colonic diverticulosis. No obstruction. No mucosal thickening. Appendix: No evidence of appendicitis. Intraperitoneal space: Unremarkable. No free air. No significant fluid collection. Vasculature: Unremarkable. No abdominal aortic aneurysm. Lymph nodes: Small mesenteric lymph nodes. Urinary bladder: Unremarkable as visualized. Reproductive: Unremarkable as visualized. Bones/joints: Degenerative changes at the lumbosacral junction noted No acute fracture. Postsurgical changes left femur partially visualized Soft tissues: Small fat-containing inguinal hernias are noted. . IMPRESSION: Nonspecific nonobstructed bowel gas pattern. Correlate for mild enteritis/adenitis No CT evidence for acute appendicitis Small fat containing inguinal hernias without CT evidence for incarceration Indeterminate left adrenal nodule. Follow-up characterization recommended if not already performed Dictated and Authenticated by: Misbah Martinez MD. Ordering:CUCA Leung MD
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
== END 2022-10-28 21:09 | disposition home or self-care (01) ==
PROVIDERS: Emergency Provider Physician Assistant; PCP Nurse Practitioner
DX: K40.90 Unilateral inguinal hernia, without obstruction or gangrene, not specified as recurrent (principal); N28.1 Cyst of kidney, acquired; D35.01 Benign neoplasm of right adrenal gland; I10 Essential (primary) hypertension; J45.909 Unspecified asthma, uncomplicated; Z79.899 Other long term (current) drug therapy
CPT/HCPCS: 80053; 83690; 99285; 74177; 81003; 85025; 99284; J3490

== ENCOUNTER 2022-12-14 11:21 | Outpatient (CLI) | payer BC, SELFPAY ==
[2022-12-14 07:08] LABS: Calculated LDL 100 mg/dL (<100); Cholesterol 186 mg/dL (<200); HDL Cholesterol 35 mg/dL (40-60); Triglyceride 256 mg/dL (<150)
== END 2022-12-14 11:22 | disposition home or self-care (01) ==
LOC: LBO 11:23
PROVIDERS: PCP Nurse Practitioner; Visit Provider Nurse Practitioner
DX: E78.00 Pure hypercholesterolemia, unspecified (principal)
CPT/HCPCS: 80061

== ENCOUNTER 2023-02-22 10:46 | Emergency (ER) | payer BC, SELFPAY ==
[2023-02-22 10:50] VITALS: BP 178/101; PULSE 101; RESP 18; TEMP 36.6; O2SAT 97
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
[2023-02-22 11:22] VITALS: RESP 18
== END 2023-02-22 11:22 | disposition home or self-care (01) ==
PROVIDERS: Emergency Provider Physician Assistant; PCP Nurse Practitioner
DX: J02.9 Acute pharyngitis, unspecified (principal); R53.83 Other fatigue; R50.9 Fever, unspecified; B37.0 Candidal stomatitis
CPT/HCPCS: 87880; 99283; 99284

== ENCOUNTER 2023-03-22 06:07 | Day surgery (SDC) | payer BC, SELFPAY ==
--- NOTE | 2023-03-21 18:26 | COLE_ITS ---
Date of service: 03/22/23 Time of Service: 08:14 Colonoscopy Report Date of procedure: 03/22/23 Pre-op diagnosis general: CRC screening Post-op diagnosis procedure note: other (Polyps and diverticula) Surgeon: Jeanette Loera Anesthesia Type: General:No Airway Estimated blood loss (mL): 1 Pathology: other Complications: None Disposition: same day Prep: Miralax/Dulcolax Retraction Time: 19 Procedure Description: After informed consent was obtained the patient was taken to the procedure room and placed in a left decubitous position. Monitors were applied and a time out was done. The patients name, date of , procedure, allergies to medications and metal in their body was reviewed. The patient was then sedated. Once sedated and comfortable a rectal exam was done. External exam was normal. Internal exam revealed a normal sphincter tone and no palpable masses. The scope was then introduced and retrofelexed. No internal hemorrhoids were identified. The scope was then advanced to the cecum without difficulty. The TI and appendiceal orifice were identified. The prep was BBPS 2 in all segments for total of 6. The scope was then slowly retracted over 19. He had multiple hyperplastic polyps in the sigmoid and rectal colon. The scope was retracted 19 minutes back into the rectum. there multiple 5 mm flat polyps multiple polyp at 40cm. These appear to be hyperplastic polyps under NBI.. 3 of these were sampled using a with a cold biting forcep. He has another 5 mm flat polyp at 35 cm that does appear to be adenomatous under NBI. This is removed with a cold biting forcep. He also has multiple flat 5 mm polyps in the rectum. A account maintenance representative 1 of these were sampled, With a cold biting forcep. Again all of these appear to be adenomatous under NBI. He has a few small scattered diver ticula in the sigmoid colon with no signs of active bleeding or infection. The mucosa is otherwise pink and healthy with a normal vascular pattern.. The scope was removed and the patient was woken up and taken back to Same day surgery in stable condition. The patient tolerated the procedure well and there were no immediate complications. Follow up: The patient should follow up in 5-7 years path pending,, unless they develop changes in bowel habits or other new gastrointestinal complaints.
--- NOTE | 2023-03-21 18:27 | PDOC.DSDIS_ITS ---
Date of service: 03/22/23 Time of Service: 08:28 Discharge Plan Disposition Patient Disposition: Home Discharge Details Reason For Visit: colons cope Attending Provider: Jeanette Loera Primary Care Provider: Linda Romero Home Meds and New Rx's Prescriptions: Continued lisinopril 40 mg tablet 40 mg PO DAILY Qty: 90 3RF rosuvastatin [Crestor] 20 mg tablet 20 mg PO DAILY Qty: 90 3RF omeprazole 20 mg capsule,delayed release(DR/EC) 20 mg PO DAILY Qty: 90 3RF ibuprofen 600 mg tablet 600 mg PO TID Qty: 180 3RF Rx Instructions: Take w/ solid food oxycodone 10 mg tablet 10 mg PO QID MDD 40mg PRN (Reason: pain) Qty: 112 0RF nystatin 100,000 unit/mL suspension 400,000 unit PO Q6H Qty: 473 0RF Rx Instructions: administer 1/2 of dose in each side of the mouth, swish, and swallow for 7-14 days Discontinued bisacodyl [Dulcolax (bisacodyl)] 5 mg tablet,delayed release (DR/EC) 5 mg PO ONCE Qty: 4 0RF Rx Instructions: Take per colonoscopy instructions provided by ordering providers office polyethylene glycol 3350 17 gram/dose powder 17 g PO ONCE Qty: 238 0RF Rx Instructions: Take per colonoscopy instructions provided by ordering providers office Discharge Instructions Additional Instructions: DSU Colonoscopy Post- Op Instructions Instructions for Everyone who is given Anesthesia: For your safety, please do the following for the next twenty-four (24) hours: *Do Not operate a motor vehicle (car, truck, motorcycle, etc.) *Do Not drink alcoholic beverages or use any recreational drugs for the first 24 hours or while taking pain medications. The medications in your body may have a reaction that can be dangerous. *Do Not make any important decisions or sign any important papers. Findings: -polyp: My office will send a letter in 2 to 3 weeks time to polyps they are and when we want to repeat the colonoscopy. -Diverticula: make sure you are moving your bowels on a regular basis and not straining to go to the bathroom. IF you find you are having constipation or straining, start a fiber product daily such as metamucil. 1. No lifting over 20 pounds or strenuous activity for the first 24 hours after your procedure. After 24 hours there are no restrictions on your activity but you may feel fatigued for a few days. 2. After you arrive home you may have a light meal and return to your normal diet as you can tolerate it without feeling sick to your stomach. 3. You may have a bloated, gaseous feeling in your belly (abdomen) after a colonoscopy. Passing gas and belching will help. Walking or lying down on your left side with your knees flexed may relieve the discomfort. Call the office at [phone] (Office) or [phone] (Hospital) right away if you notice any of the following: a.Vomiting of blood or ?coffee ground stools?. b.Rectal bleeding 1Tbsp, blood clots or continuous bleeding. c.Severe belly (abdominal) pain. d.A hard distended belly (abdomen) and an inability to pass gas. 4. Please don?t expect to have a normal BM (bowel movement) for 2-3 days after your procedure. 5. If there are questions regarding the findings of your procedure, please contact your doctor 6. If you are unable to contact your doctor with a problem, contact the hospital at [phone]. 7. Continue all your regular medications unless directed otherwise. I understand the above instructions and have no questions. Signature of Patient or Adult Escort Name of Responsible Adult Escort Signature of Nurse Date/Time Activity:: see above Diet:: see above Discharge Orders Discharge Orders: Discharge Order (Routine); Ordered 03/22/23 Ordered By: Jeanette Loera DS: Diagnosis Discharge Diagnosis (1) Sensorineural hearing loss (SNHL) of both ears: Status: Acute (2) Hypercholesterolemia with LDL greater than 190 mg/dL: Status: Acute (3) Tobacco abuse: Status: Chronic (4) Blood pressure elevated without history of HTN: Status: Acute (5) Chronic back pain: Status: Acute (6) Chronic pain syndrome: Status: Acute (7) Osteoarthritis: Status: Acute (8) Sciatica: Status: Acute (9) Non-alcoholic fatty liver disease: Status: Acute (10) History of alcohol abuse: Status: Acute (11) Asthma: Status: Acute (12) RLS (restless legs syndrome): Status: Acute (13) IFG (impaired fasting glucose): Status: Acute (14) Screening for malignant neoplasm of colon performed: Status: Acute Asessment and Plan: Post [place] Note/Eval The patient is seen and examined after their colonoscopy.? The patient has been able to pass gas.? They are not having abdominal pain.? They have been able to tolerate liquids and a snack.? They do not have any nausea or vomiting.? They are not having any chest pain or shortness of breath.??? They are not having any rectal bleeding. Their vital signs have been stable-see nursing notes. We discussed findings during their colonoscopy, and any biopsies that were done/polyps that were removed. The patient will be sent a letter with any biopsy results, and when to repeat the colonoscopy.-see discharge instructions. Patient was given explicit instructions to follow-up regarding colonoscopy-refer to discharge instructions.? We reviewed resumption of medications. Patient verbalized understanding and discharged in stable and satisfactory condition- See nursing notes.
--- NOTE | 2023-03-22 06:28 | W.ANESPRE ---
General Info Date of Service Date Performed: 03/22/23 Height: 5 ft 8 in Weight: 98.883 kg Body Mass Index (BMI): 33.1 Surgical Procedure: Operation Date: 03/22/23 07:35 Proposed Procedure Side Surgeon estrella Loera, Meds Allergies and Home Medications Allergies Allergy/AdvReac Type Severity Reaction Status Date / Time pravastatin AdvReac Intermediate NECK Verified 03/20/23 10:25 MUSCLE PAIN pregabalin [From Lyrica] AdvReac Intermediate Headache Verified 03/20/23 10:25 Home Medication Medication Instructions Recorded ibuprofen 600 mg tablet 600 mg PO TID #180 tabs 01/15/22 lisinopril 40 mg tablet 40 mg PO DAILY #90 tabs 04/09/22 rosuvastatin 20 mg tablet (Crestor) 20 mg PO DAILY #90 tab-caps 04/09/22 omeprazole 20 mg capsule,delayed 20 mg PO DAILY #90 tab-caps 11/07/22 release nystatin 100,000 unit/mL oral 400,000 unit (4 mL) PO Q6H #473 mL 02/22/23 suspension oxycodone 10 mg tablet 10 mg PO QID PRN pain #112 tabs 03/05/23 Current Visit Medications: Current Medications Generic Name Dose Route Start Last Admin Trade Name Freq PRN Reason Stop Dose Admin Hyoscyamine Sulfate 0.125 mg 03/22/23 02:56 Hyoscyamine 0.125 Mg Sl/Oral/Chew SL 04/21/23 02:55 DIRECTED PRN Ringer's Solution 1,000 mls @ 80 mls/hr 03/22/23 06:00 IV 04/20/23 23:59 [facility]ION [facility] IV Miscellaneous Supplies 1 each 03/22/23 06:00 Iv Access IV 04/20/23 23:59 DIRECTED ANUP Ondansetron HCl 4 mg 03/22/23 02:56 Ondansetron 4 Mg/2 Ml Vial IVP 04/21/23 02:55 Q4H PRN PRN Nausea / Vomiting Sodium Chloride 0 ml 03/22/23 06:00 Normal Saline Flush 10 Ml Syr IV 04/20/23 23:59 PRN PRN Sodium Chloride 0 ml 03/22/23 06:00 Normal Saline 10 Ml Vial IJ 04/20/23 23:59 DIRECTED PRN Sterile Water 0 ml 03/22/23 06:00 Water,Injection,Sterile 10 Ml Vial IJ 04/20/23 23:59 DIRECTED PRN PFSH Active Problems Active Problems: Problem Status Onset Code Screening for malignant neoplasm of colon performed Z12.11 Pharyngitis J02.9 Oral thrush B37.0 Sensorineural hearing loss (SNHL) of both ears H90.3 Internal derangement of left knee M23.92 Hypercholesterolemia with LDL greater than 190 mg/dL ~04/2022 E78.00 Essential hypertension I10 Postlaminectomy syndrome of lumbar region M96.1 Left lumbar radiculitis M54.16 Previous back surgery Z98.890 Tobacco abuse Z72.0 Blood pressure elevated without history of HTN 03/06/18 R03.0 Chronic back pain 06/13/17 M54.9, G89.29 Chronic pain syndrome G89.4 Closed fracture of femur 08/08/97 S72.90XA Depressive disorder F32.9 Hyperlipidemia E78.5 Moderate obstructive sleep apnea G47.33 Ramey's neuroma of left foot 10/16/17 G57.62 Non-alcoholic fatty liver disease K76.0 Osteoarthritis 12/24/14 M19.90 Pilonidal cyst without abscess L05.91 Sciatica M54.30 Smoker F17.200 Sprain of acromioclavicular ligament 12/08/11 S43.50XA HTN (hypertension) I10 Elbow pain, right M25.521 History of shoulder surgery Z98.890 History of alcohol abuse 05/16/17 F10.11 Asthma 05/16/17 J45.909 RLS (restless legs syndrome) G25.81 IFG (impaired fasting glucose) R73.01 Finger pain, left M79.645 Subungual hematoma of finger of left hand S60.10XA Surgical History Surgical History Acromioplasty (12/24/14) JESS ACROMIOPLASTY/EXCISION DISTAL CLAVICLE RG SHOULDER/DR PRESTON Tobacco Smoking/Tobacco Use Status: Current every day Tobacco Type: cigarettes Smoking cigarettes per day: 15 Alcohol Alcohol Intake: former Substance Use Substance use: Never Substance use type: does not use Vital Signs and Lab Results Vital Signs Most Recent Vital Signs in EMR: Temp Pulse Resp BP Pulse Ox 36.6 C 92 H 16 156/109 H 97 03/22/23 07:02 03/22/23 07:02 03/22/23 07:02 03/22/23 07:02 03/22/23 07:02 Lab Results Blood Type / Crossmatch: No Data to Display Complete Blood Count: No Data to Display Complete Metabolic Panel: No Data to Display Liver Function Panel: No Data to Display Coagulation Panel: No Data to Display Cardiac Panel: No Data to Display Arterial Blood Gas: No Data to Display Venous Blood Gas: No Data to Display Pancreas Panel: No Data to Display Thyroid Panel: No Data to Display Infectious Disease: No Data to Display Blood Cultures: No Data to Display Toxicology Panel: No Data to Display Imaging and Studies Imaging and Studies Study information below may be from another EMR and interpreted by another provider. Please see original notes in EMR for more complete details. Stress Test Summary: 10/31: 10 METS, no evidence of ischemia. Anesthesia Assessment and Plan Anesthesia History Personal History: No History of Anesthesia Complications Family History: No Family History of Anesthesia Complications Exercise Tolerance Exercise Tolerance: Metabolic Equivalents>4 Cardiac & Pulmonary Exam Cardiac Exam: Normal S1/S2 Heart Sounds Pulmonary Exam: Clear Bilateral Breath Sounds Implantable Cardiac Device Does patient have a Pacemaker or an ICD?: No Airway Exam Known Difficult Airway: No Mallampati Class: 3 Mouth Opening: Normal (> 3cm) Thyromental Distance: Greater than 3 cm Facial Hair: Full Solitario Neck Range of Motion: Full ROM Neck Circumference: Normal Teeth Condition: Normal Dentition ASA Classification ASA Score: ASA 2 Emergency Case?: No NPO Status NPO Status: NPO Clears >2 hours, Solids >8 hours Anesthesia Plan Resuscitation Status: Full Code Anesthesia Technique: General Anesthesia Airway Planned: Natural Airway Monitors Used: Standard Monitors Preoperative Comments:: 48 yo male for screening colo. Sig PMHx: HTN (lisinopril), ARIANNA, GERD (omep 20), asthma (denies inhaler use), fatty liver, back pain (lami)/chronic pain (oxycodone), depression, smoker,
[2023-03-22] MEDS: Lactated Ringers 1,000 ML 80 ML IV (07:00)
[2023-03-22 07:02] VITALS: BP 156/109; PULSE 92; RESP 16; TEMP 36.6; O2SAT 97
[2023-03-22 07:10] VITALS: BMI 33.1
--- NOTE | 2023-03-22 08:01 | BOWEL_PTH ---
PATIENT: Jose Guerrero LOC: [facility] U#:[id number] AGE/SX: 48/M ROOM: RE03/22/[address]: Jeanette Loera : 1975 BED: DIS: 03/22/2023 SPEC #: [id number] RECD: 03/22/23 12:07 STATUS: FILIBERTO RE #: [id number] KEMAR: 03/22/23 08:[address]: Jeanette Loera DEPT: Surgical Specimen RECD BY: Radha Ruiz ENTERED: 03/22/23 12:09 SP TYPE: Bowel OTHR DR: Linda Romero APRN Tissues: 1 - BIOPSY BOWEL 2 - BIOPSY BOWEL 3 - BIOPSY BOWEL 4 - BIOPSY BOWEL Procedures: GROSS AND MICRO LEVEL 4 Comments: [id number]
[2023-03-22 08:15] VITALS: BP 153/129; PULSE 86; RESP 17; TEMP 36.7; O2SAT 97
--- NOTE | 2023-03-22 08:30 | W.ANESPOSTOP ---
Postoperative Evaluation Date, Time and Location Date Performed: 03/22/23 Time Performed: 08:30 Patient Location: Day Surgery Unit Vital Signs Most Recent Imported Vital Signs: Most Recent Vital Signs Temp Pulse Resp BP Pulse Ox 36.7 C 86 17 153/129 H 97 03/22/23 08:15 03/22/23 08:15 03/22/23 08:15 03/22/23 08:15 03/22/23 08:15 Pain Score Most Recent Pain Score: Most Recent Pain Score Pain Level 0 03/22/23 08:15 Assessment Mental Status: Awake (Alert & Oriented to Patient Baseline) Airway and Respiratory Function: Patent airway with normal (patient baseline) respiratory exam Cardiovascular Function: Hemodynamically Stable Hydration Status: Adequately Hydrated Nausea & Vomiting: No Nausea or Vomiting Pain: Pt. Denies Any Pain Peripheral Nerve Block: Patient did not receive a nerve block
[2023-03-22 08:45] VITALS: BP 138/100; PULSE 68; RESP 17; TEMP 36.6; O2SAT 97
== END 2023-03-22 09:10 | disposition home or self-care (01) ==
PROVIDERS: PCP Nurse Practitioner; Visit Provider Surgery
PROC: 0DJD8ZZ Inspection of Lower Intestinal Tract, Via Natural or Artificial Opening Endoscopic (ICD-10-PCS; CPT 45378; principal; 2023-03-22 07:30)
DX: Z12.11 Encounter for screening for malignant neoplasm of colon; K62.1 Rectal polyp; K63.5 Polyp of colon; K57.30 Diverticulosis of large intestine without perforation or abscess without bleeding
CPT/HCPCS: 45380; 88305; J3490

== ENCOUNTER → 2023-04-30 03:09 | Outpatient (CLI) | payer BC, SELFPAY ==
--- NOTE | 2023-04-30 08:22 | DI.MRI_ITS ---
Exam(s) MR LUMBAR SPINE WO EXAM: MR LUMBAR SPINE WO CLINICAL HISTORY: chronic back pain, m54.9. TECHNIQUE: Multiplanar multisequence MRI of the Lumbar spine was performed. COMPARISON: MR MRI - LUMBAR SPINE WO CONTRAST from 11/11/[address] ABDOMEN PELVIS W from 10/28/2022 FINDINGS: Conus medullaris is at normal level. There is no evidence of conus mass nor subjacent clumping of in trathecal nerve roots to suggest arachnoiditis. The distal thecal sac appears unremarkable.There is no evidence of Tarlov intrasacral cysts nor other significant findings within the sacral canal Bones:There are no fractures nor ominous osseous lesions in the lumbar vertebral bodies and visualize d sacrum. With respect to the individual levels... T12-L1: Unremarkable L1-2: Normal disc height and signal. No disc herniation nor central canal stenosis.No foraminal steno sis L2-3: Normal disc height. No disc herniation nor central canal stenosis.No foraminal stenosis.No face t arthropathy. L3-4: Normal disc height. No disc herniation or central canal stenosis.No foraminal stenosis.No face t arthropathy. L4-5: Normal disc height and signal. No disc herniation or central canal stenosis. No foraminal naomi nosis. No significant facet arthropathy. L5-S1: This level exhibits chronic disc space narrowing, similar to previous. There also mild Modic type 1 sub endplate marrow edema changes at this level. There is annular bulging with a superimposed disc protrusion which is central and right paracentral, extending posteriorly 7 mm and approximately 2 cm wide, impinging upon the epidural space but not the thecal sac. Central canal dimensions are l ower normal at this level. There is some bilateral foraminal stenosis at this level which is related to the disc height loss, this somewhat mildly increased when compared to 2015. There are minimal de generative changes in the facet joints. Soft tissues: paraspinal soft tissues appear unremarkable. IMPRESSION: 1. At L5-S1 level there is evidence of chronic disc space narrowing (as was evident on prior MRI scan of November 2014) and there is again noted at disc herniation at this level, with measurements as above , slightly larger than 2015. This does not compress the thecal sac at this level. There is mild merle ateral vertical foraminal stenosis at this level (L5-S1). 2. All other levels appear unremarkable. DATA REPOSITORY:
== END ==
PROVIDERS: PCP Nurse Practitioner; Visit Provider Nurse Practitioner
DX: M51.37 Other intervertebral disc degeneration, lumbosacral region
CPT/HCPCS: 72148

== ENCOUNTER 2024-04-27 21:45 | Emergency (ER) | payer MEDICAID, SELFPAY ==
[2024-04-27 21:49] VITALS: BP 169/110; PULSE 95; RESP 16; TEMP 36.6; O2SAT 95
--- NOTE | 2024-04-27 22:15 | RT.EKG_ITS ---
APPROVED REPORT Exam: Resting ECG Reason for Exam: Per Provider Patient Location: E HR:82 bpm ECG Measurements Heart Rate 82 AXIS AZ 160 P 31 QRSd 89 QRS 74 QT 360 T 59 QTc 421 Conclusion Sinus rhythm...normal P axis, V-rate 60- 99 Physician: no stemi
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
[2024-04-27] MEDS: Loratidine 10 MG TAB PO (22:40)
[2024-04-27] MEDS: predniSONE 20 MG TAB 60 MG PO (22:40)
[2024-04-27] MEDS: diphenhydrAMINE 25 MG CAP PO (22:40)
== END 2024-04-27 22:41 | disposition home or self-care (01) ==
PROVIDERS: Emergency Provider Student in an Organized Health Care Education/Training Program; PCP Nurse Practitioner
DX: L50.9 Urticaria, unspecified (principal); I10 Essential (primary) hypertension; E78.00 Pure hypercholesterolemia, unspecified; F17.210 Nicotine dependence, cigarettes, uncomplicated
CPT/HCPCS: 93005; 99283; 93010; J7512

== ENCOUNTER 2024-05-08 01:09 | Outpatient (CLI) | payer MEDICAID, SELFPAY ==
[2024-05-08 08:20] LABS: Hemoglobin A1C 5.3 % (<5.7)
[2024-05-08 08:53] LABS: ALT 49 U/L (16-63); AST 25 U/L (15-37); Albumin 3.6 g/dL (3.4-5.0); Alkaline Phosphatase 134 U/L (46-116); Anion Gap 6.6 mmol/L (3-11); BUN 11 mg/dL (7-18); Bilirubin, Total 0.44 mg/dL (0.2-1.0); CO2 31.4 mmol/L (21.0-32.0); CREATININE 0.8 mg/dL (0.70-1.30); Calcium 8.9 mg/dL (8.5-10.1); Calculated LDL 162 mg/dL (<100); Chloride 101 mmol/L (98-107); Cholesterol 254 mg/dL (<200); Estimated GFR 109.85 (mL/min/1.73m2); Glucose 99 mg/dL (74-106); HDL Cholesterol 37 mg/dL (40-60); Potassium 4.9 mmol/L (3.5-5.1); Sodium 139 mmol/L (136-145); TSH (W/Ref FT4) 1.84 uIU/mL (0.36-3.74); Total Protein 7.3 g/dL (6.4-8.2); Triglyceride 277 mg/dL (<150)
== END 2024-05-08 01:10 | disposition home or self-care (01) ==
LOC: LBO 01:09
PROVIDERS: PCP Nurse Practitioner; Visit Provider Nurse Practitioner
DX: E78.00 Pure hypercholesterolemia, unspecified (principal); I10 Essential (primary) hypertension; R73.01 Impaired fasting glucose
CPT/HCPCS: 36415; 80053; 80061; 83036; 84443

== ENCOUNTER 2024-11-23 01:25 | Outpatient (CLI) | payer MEDICAID, SELFPAY ==
--- NOTE | 2024-11-23 06:30 | DI.MRI_ITS ---
Exam(s) MR LUMBAR SPINE WO EXAM: MR LUMBAR SPINE WO CLINICAL HISTORY: chronic back pain,lt lumbar radiculitis,previous back surgery,m54.16,m54.40. TECHNIQUE: Multiplanar multisequence MRI of the Lumbar spine was performed. COMPARISON: CR XR KNEE LT 4V AP,LAT,SYDNEE,PAT from 06/21/2022 MR MR LUMBAR SPINE WO from 04/30/2023 FINDINGS: Bones: The last intervertebral disc space is designated the L5/S1 level for the numbering purpose of this ex amination. The vertebral body heights are well maintained. Alignment: Unremarkable. The marrow signal characteristics are unremarkable. Cord: The conus tip ends at the T12 level. It is of normal size and signal intensity. T12-L1: No focal disc herniation is present. No central spinal canal stenosis.No neural foraminal st enosis. L1-2: No focal disc herniation is present. No central spinal canal stenosis.No neural foraminal sten osis. L2-3: No focal disc herniation is present. No central spinal canal stenosis.No neural foraminal naomi nosis. L3-4: No focal disc herniation is present. No central spinal canal stenosis.No neural foraminal naomi nosis. L4-5: No focal disc herniation is present. No central spinal canal stenosis.No neural foraminal sten osis. L5-S1: Stable loss of disc height and disc bulging and small endplate osteophytes. Mild Modic type 1 changes.. Stable size and appearance of previously noted right paracentral disc protrusion. Postsurgi jerry changes with left laminectomy. Mild scarring within thecal sac. Facet degenerative changes contri bute to bilateral neural foraminal narrowing, left greater than right.. The visualized SI joints and sacrum are unremarkable. Soft tissues: Postsurgical changes at the L5-S1 level. IMPRESSION: Stable appearance of the L5-S1 level with loss of disc height, disc bulging and right paracentral dis c protrusion. Stable bilateral neural foraminal narrowing. DATA REPOSITORY:
== END 2024-11-23 01:45 ==
LOC: DI 01:25
PROVIDERS: PCP Nurse Practitioner; Visit Provider Nurse Practitioner
DX: M54.16 Radiculopathy, lumbar region (principal); Z98.890 Other specified postprocedural states
CPT/HCPCS: 72148

== ENCOUNTER 2024-11-23 14:02 | Outpatient (REF) | payer MEDICAID, SELFPAY ==
[2024-11-23 09:07] LABS: ALT 65 U/L (16-63); AST 29 U/L (15-37); Albumin 3.7 g/dL (3.4-5.0); Alkaline Phosphatase 119 U/L (46-116); BUN 9 mg/dL (7-18); Bilirubin, Total 0.4 mg/dL (0.2-1.0); CREATININE 0.8 mg/dL (0.70-1.30); Calcium 8.6 mg/dL (8.5-10.1); Chloride 106 mmol/L (98-107); Cholesterol 270 mg/dL (<200); Estimated GFR 109.85 (mL/min/1.73m2); Glucose 105 mg/dL (74-106); HDL Cholesterol 39 mg/dL (>or=40); Potassium 4.4 mmol/L (3.5-5.1); Sodium 142 mmol/L (136-145); Total Protein 7.5 g/dL (6.4-8.2); Triglyceride 403 mg/dL (<150)
[2024-11-23 09:18] LABS: LDL CHOLESTEROL 179 mg/dL (<100)
== END 2024-11-23 14:03 | disposition home or self-care (01) ==
LOC: LBO 14:02
PROVIDERS: PCP Nurse Practitioner; Visit Provider Nurse Practitioner
DX: I10 Essential (primary) hypertension (principal); E78.5 Hyperlipidemia, unspecified
CPT/HCPCS: 36415; 80053; 80061; 83721

== ENCOUNTER 2024-12-29 02:35 | Outpatient (CLI) | payer MEDICAID, SELFPAY ==
--- NOTE | 2024-12-29 | DI.RAD_ITS ---
Exam(s) XR LUMBAR SPINE AP, LAT EXAM: XR LUMBAR SPINE AP, LAT CLINICAL HISTORY: DEGENERATION OF INTERVERTEBRAL DISC LUMBAR REGION, UNSPECIFIED PAIN. TECHNIQUE: 2D digital imaging was performed of the lumbar spine. Three images were obtained. AP, l ateral extension and lateral flexion views were obtained. COMPARISON: CT CT ABDOMEN PELVIS W from 10/28/2022 FINDINGS: BONES: No fracture or destructive lesion. Small endplate osteophytes are seen in the lumbar spine. N o facet hypertrophy identified. DISKS: There is disc space narrowing at L5-S1. There is a vacuum disc at L5-S1. ALIGNMENT: Lumbar spinal alignment is within normal limits. No subluxation is seen with flexion or ex tension. SOFT TISSUE: Normal. IMPRESSION: Mild degenerative changes seen in the lumbar spine particularly at L5-S1. DATA REPOSITORY: RADIATION DOSE DELIVERED:
== END 2024-12-29 02:55 ==
LOC: DI 02:35
PROVIDERS: PCP Nurse Practitioner; Visit Provider Neurological Surgery
DX: M51.379 Other intervertebral disc degeneration, lumbosacral region without mention of lumbar back pain or lower extremity pain (principal)
CPT/HCPCS: 72100

== ENCOUNTER 2025-03-19 00:35 | Outpatient (CLI) | payer MEDICAID, SELFPAY ==
--- NOTE | 2025-03-19 07:15 | DI.RAD_ITS ---
Exam(s) XR KNEE RT 3V AP,LAT,SYDNEE EXAM: XR KNEE RT 3V AP,LAT,SYDNEE CLINICAL HISTORY: Spontaneous swelling rt lower leg,m25.461, effusion. TECHNIQUE: 2D digital imaging was performed. Three views. COMPARISON: CR XR KNEE LT 4V AP,LAT,SYDNEE,PAT from 06/21/2022 FINDINGS: BONES: No acute fracture is present. No bony destructive lesion is seen. JOINTS: The knee is normally aligned. No joint effusion is seen. There is mild narrowing of the medial femoral tibial joint space. There is mild chondrocalcinosis. SOFT TISSUE: Mild calcification in distal quadriceps tendon. IMPRESSION: Mild degenerative changes and chondrocalcinosis. DATA REPOSITORY: RADIATION DOSE DELIVERED:
--- NOTE | 2025-03-19 07:15 | DI.US_ITS ---
Exam(s) US LOWER EXTREMITY VENOUS RT EXAM: US LOWER EXTREMITY VENOUS RT CLINICAL HISTORY: unilateral edema lower ext,r60.0 TECHNIQUE: Grayscale, color, and doppler imaging of the deep venous system of the right lower extremity was performed. COMPARISON: US ABDOMEN ULTRASOUND from 09/21/2008 FINDINGS: There is no evidence of intraluminal thrombus and there is normal compression and augmentation demonstrated within the common femoral vein, femoral vein, and popliteal vein. In the ipsilateral calf the interrogated veins also exhibit normal compression/ augmentation properties. The ipsilateral saphenofemoral junction is patent. There is a Koenig cyst in the popliteal fossa which measures 9 cm length and extends cephalad into the posterior thigh. IMPRESSION: 1. No evidence of DVT in the right lower extremity. 2. Prominent 9 cm length Koenig cyst in the popliteal fossa which is seen extending cephalad into the posterior thigh. DATA REPOSITORY:
== END 2025-03-19 00:55 ==
PROVIDERS: PCP Family Medicine; Visit Provider Family Medicine
DX: M17.11 Unilateral primary osteoarthritis, right knee (principal); M22.41 Chondromalacia patellae, right knee
CPT/HCPCS: 73562; 93971

== ENCOUNTER 2025-04-15 08:48 | Outpatient (CLI) | payer MEDICAID, SELFPAY ==
[2025-04-15 08:36] LABS: Vitamin B12 392 pg/mL (193-986)
[2025-04-16 08:52] LABS: Lyme Ab w Rflx to Lyme Confirm Negative (Negative)
[2025-04-18 19:08] LABS: B. miyamotoi PCR Negative (Negative); Babesia divergens/MO-1 Negative (Negative); Ehrlichia muris eauclairensis Negative (Negative)
== END 2025-04-15 08:49 | disposition home or self-care (01) ==
LOC: LBO 08:50
PROVIDERS: PCP Family Medicine; Visit Provider Family Medicine
DX: G62.9 Polyneuropathy, unspecified (principal); M17.11 Unilateral primary osteoarthritis, right knee
CPT/HCPCS: 36415; 87798; 82607; 86618

== ENCOUNTER 2025-07-15 16:19 | Emergency (ER) | payer MEDICAID, SELFPAY ==
[2025-07-15 16:41] VITALS: BP 188/102; PULSE 90; RESP 20; TEMP 37; O2SAT 94
--- NOTE | 2025-07-15 16:45 | DI.RAD_ITS ---
Exam(s) XR CHEST 2V PA LATERAL EXAM: XR CHEST 2V PA LATERAL CLINICAL HISTORY: chest pain. TECHNIQUE: 2D digital imaging was performed. COMPARISON: No exams were available for comparison FINDINGS: 2 views: Heart size is normal. The mediastinum is not widened. Lungs are clear. No infiltrates nor pleural effusions. IMPRESSION: No acute pulmonary findings. DATA REPOSITORY: RADIATION DOSE DELIVERED:
--- NOTE | 2025-07-15 16:45 | RT.EKG_ITS ---
APPROVED REPORT Exam: Resting ECG Reason for Exam: Chest Pain Patient Location: E HR:92 bpm ECG Measurements Heart Rate 92 AXIS NE 157 P 47 QRSd 86 QRS 76 QT 341 T 54 QTc 422 Conclusion Sinus rhythm...normal P axis, V-rate 60- 99 ST elev, probable normal early repol pattern...ST elevation, age<55
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
[2025-07-15] MEDS: Aspirin 81 MG CHEW 324 MG CH (17:27)
[2025-07-15 17:49] LABS: Abs Immature Grans 0.04 10^3/uL (0.0-0.06); HCT 46.8 % (40.0-50.0); HGB 15.7 g/dL (13.5-17.5); Immature Grans % 0.4 %; MCH 33.3 pg (27.0-33.0); MCHC 33.5 % (32.0-36.0); MCV 99 fL (80-95); MPV 9.1 fL (8.0-11.0); Platelet Count 171 10^3/uL (130-400); RBC 4.71 10^6/uL (4.36-5.78); RDW 12.3 % (11.8-14.1); RDW-SD 45.4 fL; WBC 11.23 10^3/uL (4.4-10.8)
[2025-07-15 18:19] LABS: ALT 196 U/L (16-63); AST 96 U/L (15-37); Albumin 3.9 g/dL (3.4-5.0); Alkaline Phosphatase 114 U/L (46-116); Anion Gap 7.3 mmol/L (3-11); BUN 10 mg/dL (7-18); Bilirubin, Total 0.5 mg/dL (0.2-1.0); CO2 30.7 mmol/L (21.0-32.0); Calcium 8.8 mg/dL (8.5-10.1); Chloride 100 mmol/L (98-107); Glucose 94 mg/dL (74-106); Lipase 30 U/L (<78); Potassium 4.7 mmol/L (3.5-5.1); Sodium 138 mmol/L (136-145); Total Protein 7.7 g/dL (6.4-8.2); Troponin I 9 ng/L (<or=76)
[2025-07-15 19:01] VITALS: PULSE 80; O2SAT 96
[2025-07-15 19:02] LABS: Troponin I 9 ng/L (<or=76)
[2025-07-15 19:03] VITALS: BP 121/94; PULSE 90; PULSE 92; RESP 15; O2SAT 93
[2025-07-15 19:04] VITALS: TEMP 36.8
== END 2025-07-15 19:45 | disposition home or self-care (01) ==
PROVIDERS: Emergency Provider Physician Assistant; PCP Family Medicine
DX: R07.9 Chest pain, unspecified (principal); R11.0 Nausea; I10 Essential (primary) hypertension; Z59.89 Other problems related to housing and economic circumstances; Z73.9 Problem related to life management difficulty, unspecified
CPT/HCPCS: 99284 ×2; 36415; 80053; 83690; 93005; 71046; 83880; 84484; 85025; 93010

== ENCOUNTER → 2025-08-02 02:09 | Outpatient (CLI) | payer MEDICAID, SELFPAY ==
--- NOTE | 2025-08-02 06:45 | DI.NM_ITS ---
APPROVED REPORT Exam: Pharmacologic Patient Location: Out-Patient Room/Bed: Stress Nurse: Rafaela Garces RN Ordering Provider:ELINOR SKELTON, Contact Number: [phone] BMI: 36.79 Baseline Rhythm: Sinus Rhythm Indications: episode of chest pain, difficulty with treadmill Medical History Medical History: HLD, smoker, HTN, MDD, peripheral neuropathy, opioid dependence, chronic back pain, chronic pain syndrome, ARIANNA, asthma, RLS Cardiac Medications: lisinopril, rosuvastatin, nitroglycerin, aspirin, bupropion, famotidine, celecoxib, vortioxetine, amlodipine, magnesium glycinate, oxycodone Allergies: pravastatin, pregabalin Cardiac Risk Factors: family hx, htn, asthma, hld, smoker Previous Cardiac Procedures: n/a Pretest Chest Pain Characteristics: No chest pain Exercise History: Indeterminate Physical Disabilities: knee, back Lung Sounds: Clear to auscultation Heart Sounds: Regular Stress Test Details Test: Pharmacologic stress was paired with low level exercise. Reason for pharmacologic stress test: physical limitation. Nuclear Acquisition: Rest Tc-99m/Stress Tc-99m 1 day Rest Isotope: Tc-99m Sestamibi. Dose: 10.0 Date: 08/02/2025 Injection Time: 0845 Stress Isotope: Tc-99m Sestamibi. Dose: 30.0 Date: 08/02/2025 Injection Time: 1016 HR Resting HR Supine: 82 bpm Max Heart Rate (APMHR): 172 bpm Resting HR Standin bpm Target HR (85% APMHR): 146 bpm Max HR Achieved: 113 bpm % of APMHR: 66 Recovery HR: 90 bpm BP Resting BP Supine: 130/80 mmHg Resting BP Standin/90 mmHg Max BP: 150/80 mmHg Recovery BP: 132/78 mmHg ECG Resting ECG: Sinus Rhythm Ectopy: n/a Stress ECG: Sinus Tachycardia ST Change: Nondiagnostic low heart rate Arrhythmia: None Recovery ECG: Sinus Rhythm Recovery ST Change: Nondiagnostic low heart rate Recovery Arrhythmia: None Clinical Stress Symptoms: Dyspnea Angina Score: None Rate Pressure Product: [id number] Stress ECG Conclusion 1. Resting electrocardiogram was normal 2. Patient underwent testing using a combination of low-level exercise and pharmacologic stress with regadenoson 3. Peak heart rate achieved was 66% of maximal predicted for age 4. The electrocardiographic portion of the test was nondiagnostic 5. See MPI report Stress Test Summary STAGE HR BP SpO2 Symptoms NOTES Supine 82 130/80 93 Standing 90 140/90 1 min post Lexiscan injection 111 150/80 98 mild SOB 3 min post Lexiscan injection 96 130/80 96 6 min post Lexiscan injection 90 132/78 96 Walking piter test performed due to physical limitations/pt request. Pt experienced mild SOB during test, all symptoms resolved by end of test. Pt left ambulatory in no acute distress. MPI Conclusion Myocardial perfusion was normal. There is no ischemia or evidence of prior infarction Ejection fraction and wall motion were normal
[2025-08-02] MEDS: Regadenoson 0.4 MG/5 ML SYR IVP (10:16)
== END ==
LOC: DI 02:09
PROVIDERS: PCP Family Medicine; Visit Provider Family Medicine
DX: R07.9 Chest pain, unspecified (principal)
CPT/HCPCS: 78452; 93017; J2785

== ENCOUNTER → 2025-08-02 02:09 | Outpatient (CLI) | payer MEDICAID, SELFPAY ==
--- NOTE | 2025-08-02 09:21 | DI.RAD_ITS ---
Exam(s) XR EYE FOREIGN BODY EXAM: XR EYE FOREIGN BODY INDICATION: PRE MRI FOR ? FB,h/o metal exposure,arthritis rt knee,m17.11. COMPARISON: No exams were available for comparison TECHNIQUE: 2D digital imaging was performed. Two views were obtained. FINDINGS: There is no radiopaque foreign body seen in the orbits. IMPRESSION: DATA REPOSITORY: RADIATION DOSE DELIVERED:
== END ==
LOC: DI 02:09
PROVIDERS: PCP Family Medicine; Visit Provider Student in an Organized Health Care Education/Training Program
DX: M17.11 Unilateral primary osteoarthritis, right knee (principal)
CPT/HCPCS: 70030

== ENCOUNTER → 2025-08-11 01:17 | Outpatient (CLI) | payer MEDICAID, SELFPAY ==
--- NOTE | 2025-08-11 06:15 | DI.MRI_ITS ---
Exam(s) MR LOWER JOINT RT WO EXAM: MR LOWER JOINT RT WO CLINICAL HISTORY: PAIN,arthritis rt knee, m17.11. TECHNIQUE: Multiplanar multisequence MRI was performed. COMPARISON: CR XR KNEE RT 3V AP,LAT,SYDNEE from 03/19/2025 FINDINGS: BONES: There is no fracture or contusion pattern. JOINTS: There is thinning of the articular cartilage and subchondral edema in the patella. There is mild thinning of the articular cartilage overlying the medial femoral condyle and medial tibial plateau. There is a small amount of fluid in the joint space. TENDONS: Extensor mechanism: Unremarkable. Medial retinaculum: Unremarkable. Lateral retinaculum: Unremarkable. Popliteus: Unremarkable. MUSCLES: Unremarkable. MENISCI: There is a tear of the body of the medial meniscus with a small parameniscal cyst. The lateral meniscus is unremarkable. SOFT TISSUES: There is a popliteal cyst. It measures 5.2 cm cranio caudally by 2.2 cm AP. LIGAMENTS: Anterior Cruciate: Unremarkable. Posterior Cruciate: Unremarkable. Medial Collateral:Unremarkable. Lateral Collateral: Unremarkable. OTHER: IMPRESSION: 1. Tear of the body of the medial meniscus with a small parameniscal cyst. 2. There is no evidence of a ligament tear. 3. Moderate size popliteal cyst. 4. Chondromalacia patella. DATA REPOSITORY:
== END ==
LOC: DI 01:17
PROVIDERS: PCP Family Medicine; Visit Provider Student in an Organized Health Care Education/Training Program
DX: M17.11 Unilateral primary osteoarthritis, right knee (principal); M71.21 Synovial cyst of popliteal space [Baker], right knee; M22.41 Chondromalacia patellae, right knee
CPT/HCPCS: 73721